=== PATIENT | male | born 1975 | race Asian ===

== ENCOUNTER 2018-01-19 17:32 | Emergency (ER) | payer BC ==
[~2018-01-19] VITALS: Ht 170.2 cm; Wt 76.1 kg
[~2018-01-19 17:32] MED LIST: ASCO500T8 PO; ATOR20TA9 PO; CHOL100011 PO
[2018-01-19 17:40] VITALS: BP 114/73
[2018-01-19 18:52] LABS: BASOPHILS # (AUTO) 0.01 x10^3/uL (0-0.1); BASOPHILS % (AUTO) 0 % (0-1); EOSINOPHILS # (AUTO) 0.22 x10^3/uL (0-0.4); EOSINOPHILS % (AUTO) 3 % (1-7); LYMPHOCYTES % (AUTO) 27 % (22-44); MD NO; MEAN CORPUSCULAR HEMOGLOBIN 30.7 pg (27.5-34.5); MEAN CORPUSCULAR HGB CONC 33.9 g/dL (33.2-36.2); MEAN CORPUSCULAR VOLUME 90.6 fL (81-97); MEAN PLATELET VOLUME 7.5 fL (7.4-10.4); MONOCYTES # (AUTO) 0.77 x10^3/uL (0.2-0.8); MONOCYTES % (AUTO) 9 % (2-9); NEUTROPHILS # (AUTO) 5.27 x10^3/uL (1.8-6.8); NEUTROPHILS % (AUTO) 62 % (42-75); PLATELET COUNT 247 x10^3/uL (130-400); RED CELL DISTRIBUTION WIDTH 12.2 % (9.4-14.8)
[2018-01-19 19:03] LABS: ALANINE AMINOTRANSFERASE 42 U/L (12-78); ALBUMIN 4.3 g/dL (3.4-5.0); ANION GAP 6 mmol/L (5-15); CALCIUM 8.8 mg/dL (8.5-10.1); CHLORIDE 105 mmol/L (98-107)
[2018-01-19 19:08] LABS: ALKALINE PHOSPHATASE 69 U/L (45-117); BILIRUBIN,TOTAL 0.5 mg/dL (0.2-1.0); CREATININE 1.13 mg/dL (0.7-1.3); TOTAL PROTEIN 7.7 g/dL (6.4-8.2); TROPONIN I < 0.015 ng/mL (0.000-0.045)
[2018-01-19] MEDS ORDERED: KETOROLAC 30 MG/1 ML ONE (19:53)
[2018-01-19] MEDS ORDERED: KETOROLAC 30 MG/1 ML IM ONE (20:00)
== END 2018-01-19 20:08 | disposition home or self-care (01) ==
LOC: ED 20:00
DX: R07.89 Other chest pain (principal); M54.6 Pain in thoracic spine; E78.5 Hyperlipidemia, unspecified; K21.9 Gastro-esophageal reflux disease without esophagitis
CPT/HCPCS: 36415; 71045; 80053; 84484; 85025; 93005; 96372; 99285; J1885

== ENCOUNTER 2019-10-16 13:41 | Observation (INO) | payer BC, OTHER ==
[~2019-10-16] VITALS: Ht 170.2 cm; Wt 80.1 kg
[~2019-10-16 13:41] MED LIST changes: +ATOR10TA9 PO; +ATOR20TA37 PO; -ATOR20TA9 PO
[2019-10-16] MEDS ORDERED: LACTATED RINGERS 1,000 ML IV SCH (13:55)
[2019-10-16] MEDS ORDERED: ONDANSETRON 2MG/ML, 2ML IV PRN (14:00)
[2019-10-16] MEDS ORDERED: HYDROmorphone 2 MG/ML, 1ML IVPush PRN (14:00)
[2019-10-16] MEDS ORDERED: MEPERIDINE/PF 25MG/ML,1ML IVPush PRN (14:00)
[2019-10-16] MEDS ORDERED: EPHEDRINE 50 MG/ML, 1ML IVPush PRN (14:00)
[2019-10-16] MEDS ORDERED: LABETALOL 5MG/ML, 20ML IV PRN (14:00)
[2019-10-16] MEDS ORDERED: ACETAMINOPHEN 325 MG TABLET PO PRN (14:00)
[2019-10-16] MEDS ORDERED: FENTANYL PF 100 MCG/2ML IV PRN (14:00)
[2019-10-16] MEDS ORDERED: hydrALAzine 20 MG/ML, 1ML IV PRN (14:00)
[2019-10-16] MEDS ORDERED: PROMETHAZINE 25 MG/ML, 1ML IV PRN (14:00)
[2019-10-16] MEDS ORDERED: LIDOCAINE 1%-EPI 1:100K, 20ML ONE (14:38)
[2019-10-16] MEDS ORDERED: MIDAZOLAM 1 MG/ML, 2ML ONE (14:52)
[2019-10-16] MEDS ORDERED: FENTANYL PF 100 MCG/2ML ONE ×3 (14:52→16:07)
[2019-10-16] MEDS ORDERED: LIDOCAINE-MPF 2% ,5ML ONE (15:25)
[2019-10-16] MEDS ORDERED: ROCURONIUM 10MG/ML,5ML ONE (15:25)
[2019-10-16] MEDS ORDERED: SUGAMMADEX 200 MG/2 ML IVPush ONE (15:45)
[2019-10-16] MEDS ORDERED: PROPOFOL 10 MG/ML, 20ML ONE (15:46)
[2019-10-16] MEDS ORDERED: CEFAZOLIN 1,000 MG ONE (15:46)
[2019-10-16] MEDS ORDERED: SUCCINYLCHOLINE 20 MG/ML, 10ML ONE (15:46)
[2019-10-16] MEDS ORDERED: ONDANSETRON 2MG/ML, 2ML ONE (15:46)
[2019-10-16] MEDS ORDERED: DEXAMETHASONE 4 MG/ML, 1ML ONE (15:46)
[2019-10-16] MEDS ORDERED: OXYcodone 5 MG/5 ML ORAL.SOL UDC ONE (16:48)
[2019-10-16] MEDS: OXYcodone 5 MG/5 ML ORAL.SOL UDC PO PRN ×2 (16:52→18:47)
[2019-10-16] MEDS ORDERED: ACETAMINOPHEN 650 MG/20.3 ML UDC PO PRN ×2 (19:00→21:30)
[2019-10-16] MEDS ORDERED: ACETAMINOPHEN 650 MG/20.3 ML UDC ONE (19:00)
[2019-10-16] MEDS ORDERED: OXYcodone 5 MG/5 ML ORAL.SOL UDC PO PRN (21:30)
[2019-10-16] MEDS ORDERED: ONDANSETRON 2MG/ML, 2ML IVPush PRN (21:30)
[2019-10-16 23:50] VITALS: BP 110/76
[2019-10-17 03:48] VITALS: BP 102/64
[2019-10-17] MEDS ORDERED: OXYcodone 5 MG/5 ML ORAL.SOL UDC PO PRN (06:00)
[2019-10-17] MEDS ORDERED: ACETAMINOPHEN 650 MG/20.3 ML UDC PO PRN (06:00)
[2019-10-17 07:58] VITALS: BP 114/72
[2019-10-17] MEDS ORDERED: OXYC5CAP2 PO (10:39)
== END 2019-10-17 11:26 | disposition home or self-care (01) ==
LOC: OUT 13:41 → 4NE 19:15 → OUT 21:16 → 4NE 21:16 → DCLOUNGE 10-17 11:21
PROVIDERS: ADMIT Otolaryngology Facial Plastic Surgery; ATTEND Otolaryngology Facial Plastic Surgery
DX: G47.33 Obstructive sleep apnea (adult) (pediatric) (principal); E78.00 Pure hypercholesterolemia, unspecified; Z79.899 Other long term (current) drug therapy
CPT/HCPCS: 42145; 88302; 88304; G0378; J0330; J0690; J1100; J2250; J2405; J2704; J3010; J3490; J7120

== ENCOUNTER 2019-10-22 06:27 | Day surgery (SDC) | payer BC ==
[~2019-10-22] VITALS: Ht 170.2 cm; Wt 74.2 kg
[~2019-10-22 06:27] MED LIST changes: +OXYC5CAP2 PO
[2019-10-22] MEDS ORDERED: LIDOCAINE 1%-EPI 1:100K, 20ML ONE (06:34)
--- NOTE | 2019-10-22 06:59 | NUR ---
report given to kerline reyes at or. all questions answered.
[2019-10-22] MEDS ORDERED: SODIUM CHLORIDE FLUSH 10ML SYR IVF PRN (07:00)
[2019-10-22] MEDS ORDERED: SODIUM CHLORIDE FLUSH 10ML SYR IVF ONE (07:00)
--- NOTE | 2019-10-22 07:00 | NUR ---
first contact with pt. pt had tonsils removed wednesday, throat bleeding started today 0600. pt of dr jeronimo. pt's aox4. resps even and unlabored. pt denies sob/pain/v. bp/spo2 monitors in place. call light within reach. pt speak full sentences at this time. pt's at bedside.
--- NOTE | 2019-10-22 07:00 | NUR ---
Jeronimo watts in EDM - 10/22/19 at 0712 by MAYI first contact with pt. pt had tonsils removed wednesday, throat bleeding started today 0600. pt of dr jeronimo. pt's aox4. resps kirsten
[2019-10-22] MEDS ORDERED: MIDAZOLAM 1 MG/ML, 2ML ONE (07:02)
[2019-10-22] MEDS ORDERED: FENTANYL PF 250 MCG/5ML ONE (07:02)
[2019-10-22 07:10] VITALS: BP 126/82
--- NOTE | 2019-10-22 07:11 | NUR ---
pt to or at this time.
[2019-10-22] MEDS ORDERED: ONDANSETRON 2MG/ML, 2ML ONE (07:21)
[2019-10-22] MEDS ORDERED: SUCCINYLCHOLINE 20 MG/ML, 10ML ONE (07:21)
[2019-10-22] MEDS ORDERED: CEFAZOLIN 1,000 MG ONE (07:21)
[2019-10-22] MEDS ORDERED: ROCURONIUM 10MG/ML,5ML ONE (07:21)
[2019-10-22] MEDS ORDERED: DEXAMETHASONE 4 MG/ML, 1ML ONE (07:21)
[2019-10-22] MEDS ORDERED: PROPOFOL 10 MG/ML, 20ML ONE (07:21)
[2019-10-22] MEDS ORDERED: HYDROmorphone 1 MG/ML, 1ML INJ IV PRN (08:30)
[2019-10-22] MEDS ORDERED: DIAZEPAM 5 MG/ML, 2ML IV PRN ×2 (08:30)
[2019-10-22] MEDS ORDERED: OXYcodone 5 MG/5 ML ORAL.SOL UDC PO PRN (08:30)
[2019-10-22] MEDS ORDERED: hydrALAzine 20 MG/ML, 1ML IV PRN (08:30)
[2019-10-22] MEDS ORDERED: ONDANSETRON 2MG/ML, 2ML IVPush PRN (08:30)
[2019-10-22] MEDS ORDERED: KETOROLAC 30 MG/1 ML IV PRN (08:30)
[2019-10-22] MEDS ORDERED: LABETALOL 5MG/ML, 20ML IV PRN (08:30)
[2019-10-22] MEDS ORDERED: PROMETHAZINE 25 MG/ML, 1ML IV PRN (08:30)
[2019-10-22] MEDS ORDERED: FENTANYL PF 100 MCG/2ML IV PRN (08:30)
[2019-10-22] MEDS ORDERED: ALBUTEROL SULFATE 2.5 MG/3 ML NPPB PRN (08:30)
[2019-10-22] MEDS ORDERED: METOCLOPRAMIDE 5 MG/ML, 2ML IV PRN (08:30)
[2019-10-22] MEDS ORDERED: MEPERIDINE/PF 25MG/0.5ML IVPush PRN (08:30)
[2019-10-22] MEDS ORDERED: OXYcodone IR 5MG TABLET PO PRN (09:30)
[2019-10-22] MEDS ORDERED: ACETAMINOPHEN 500 MG TABLET PO PRN (09:30)
== END 2019-10-22 12:26 | disposition home or self-care (01) ==
LOC: EDSTATUS 07:30 → OR 07:36 → 4NE 08:58 → OR 08:58 → 4NE 12:26
PROVIDERS: ATTEND Emergency Medicine
DX: J95.830 Postprocedural hemorrhage of a respiratory system organ or structure following a respiratory system procedure (principal); E78.5 Hyperlipidemia, unspecified
CPT/HCPCS: 42960; J0330; J0690; J1100; J2250; J2405; J2704; J3010; J3490; G0378

== ENCOUNTER 2021-05-08 09:58 | Outpatient (CLI) | payer BC ==
[2021-05-08] MEDS ORDERED: OMNIPAQUE 350 MG/ML, 100ML BOTTLE ONE (10:30)
== END 2021-05-08 23:59 | disposition home or self-care (01) ==
LOC: CFH 09:58
PROVIDERS: ATTEND Family Medicine
DX: K76.0 Fatty (change of) liver, not elsewhere classified (principal); K40.90 Unilateral inguinal hernia, without obstruction or gangrene, not specified as recurrent; M51.36 Other intervertebral disc degeneration, lumbar region; M47.816 Spondylosis without myelopathy or radiculopathy, lumbar region; I70.90 Unspecified atherosclerosis; R10.32 Left lower quadrant pain
CPT/HCPCS: 74177; Q9967